=== PATIENT | female | born 1990 | race Caucasian/White ===

== ENCOUNTER → 2017-01-11 | Outpatient (CLI) | payer BC ==
[~2017-01-11] VITALS: Ht 162.6 cm; Wt 77.0 kg
[~2017-01-11] MED LIST: CLARITIN,ALAVAR10 MG PO; LEVOTHYROXINE150 MCG PO; LEVOTHYROXINE200 MC1 PO; PRENATAL TABLE1 EAC3 PO
[2017-01-11 15:07] VITALS: BP 112/59
== END | disposition home or self-care (01) ==
LOC: IVINF 01-07 09:30
DX: Z31.82 Encounter for Rh incompatibility status (principal); Z3A.28 28 weeks gestation of pregnancy
CPT/HCPCS: 96372

== ENCOUNTER 2017-04-05 16:01 | Inpatient (IN) | payer BC ==
[~2017-04-05] VITALS: Ht 162.6 cm; Wt 79.4 kg
[2017-04-05] VITALS (8 sets, daily range): BP systolic 100–115; BP diastolic 50–70
[2017-04-05] MEDS ORDERED: MIRALAX17 GM PO (16:30)
[2017-04-05] MEDS ORDERED: VITAMIN D5000 UNI1 PO (16:31)
[2017-04-05] MEDS ORDERED: COLACE100 MG PO (16:31)
[2017-04-05 16:55] LABS: BASOPHIL (%) 0.5 % (0-1); BASOPHIL COUNT 0.1 K/uL (0-0.1); EOSINOPHIL (%) 1.4 % (0-5); EOSINOPHIL COUNT 0.2 K/uL (0-0.3); HEMATOCRIT 36.1 % (36.0-46.0); IMMATURE GRANULOCYTE (%) 0.6 % (0.0-0.7); LYMPHOCYTE (%) 19.4 % (15-42); LYMPHOCYTE COUNT 2.1 K/uL (1.0-2.8); MCH 29.3 PG (29.0-34.0); MCHC 33.2 G/DL (30.0-36.0); MONOCYTE (%) 5.6 % (3-12); MONOCYTE COUNT 0.6 K/uL (0-0.8); NEUTROPHIL (%) 72.5 % (45-76); NEUTROPHIL COUNT 7.9 K/uL (1.8-6.4); PLATELET COUNT 270 K/uL (156-360); RBC DIS.WIDTH-CV 12.5 % (11.8-14.6); RBC DIS.WIDTH-SD 40.6 % (39-53); WHITE BLOOD COUNT 10.9 K/uL (4.1-10.2)
[2017-04-06] VITALS (35 sets, daily range): BP systolic 88–120; BP diastolic 51–73
[2017-04-07] VITALS (32 sets, daily range): BP systolic 84–125; BP diastolic 50–79
[2017-04-07] MEDS ORDERED: MOTRIN800 MG PO (22:56)
[2017-04-07] MEDS ORDERED: PERCOCET 5/31 TABLET PO (22:56)
[2017-04-08 00:25] VITALS: BP 108/64
[2017-04-08 01:31] VITALS: BP 109/63
[2017-04-08 07:25] LABS: BASOPHIL (%) 0.3 % (0-1); BASOPHIL COUNT 0.1 K/uL (0-0.1); EOSINOPHIL (%) 0 % (0-5); HEMATOCRIT 29.9 % (36.0-46.0); IMMATURE GRANULOCYTE (%) 1.1 % (0.0-0.7); LYMPHOCYTE (%) 5.3 % (15-42); LYMPHOCYTE COUNT 1.6 K/uL (1.0-2.8); MCHC 33.1 G/DL (30.0-36.0); MCV 90.6 FL (83-99); MONOCYTE COUNT 2.1 K/uL (0-0.8); NEUTROPHIL (%) 86.3 % (45-76); NEUTROPHIL COUNT 25.7 K/uL (1.8-6.4); PLATELET COUNT 224 K/uL (156-360); RBC DIS.WIDTH-CV 12.8 % (11.8-14.6); RBC DIS.WIDTH-SD 42.6 % (39-53); WHITE BLOOD COUNT 29.8 K/uL (4.1-10.2)
[2017-04-08 07:30] LABS: HEMOGLOBIN 9.9 G/DL (11.9-15.5)
[2017-04-08 07:46] VITALS: BP 136/58
[2017-04-08 23:12] VITALS: BP 98/55
[2017-04-09 06:55] VITALS: BP 110/71
== END 2017-04-09 13:41 | disposition home or self-care (01) | DRG 775 ==
LOC: LDRP-OP 16:01 → 2WEST 16:03 → LDRP-OP 05-01 16:19
PROVIDERS: Nurse Practitioner
PROC: 3E0P7GC Introduction of Other Therapeutic Substance into Female Reproductive, Via Natural or Artificial Opening (ICD-10-PCS; 2017-04-05)
PROC: 3E0S3BZ Introduction of Anesthetic Agent into Epidural Space, Percutaneous Approach (ICD-10-PCS; 2017-04-06)
PROC: 10D07Z6 Extraction of Products of Conception, Vacuum, Via Natural or Artificial Opening (ICD-10-PCS; principal; 2017-04-07)
PROC: 0DQR0ZZ Repair Anal Sphincter, Open Approach (ICD-10-PCS; 2017-04-07)
PROC: 10907ZC Drainage of Amniotic Fluid, Therapeutic from Products of Conception, Via Natural or Artificial Opening (ICD-10-PCS; 2017-04-07)
DX: O48.0 Post-term pregnancy (principal); O70.22 Third degree perineal laceration during delivery, IIIb; O36.8131 Decreased fetal movements, third trimester, fetus 1; Z85.850 Personal history of malignant neoplasm of thyroid; O99.52 Diseases of the respiratory system complicating childbirth; K58.9 Irritable bowel syndrome, unspecified; Z3A.40 40 weeks gestation of pregnancy; O99.62 Diseases of the digestive system complicating childbirth; O99.284 Endocrine, nutritional and metabolic diseases complicating childbirth; O77.0 Labor and delivery complicated by meconium in amniotic fluid; O63.1 Prolonged second stage (of labor); O75.81 Maternal exhaustion complicating labor and delivery; O12.04 Gestational edema, complicating childbirth; E89.0 Postprocedural hypothyroidism
CPT/HCPCS: 85025; C1755; G0378; J7120